=== PATIENT | female | born 1940 | race Caucasian/White ===

== ENCOUNTER 2017-07-22 23:04 | Inpatient (IN) | payer OTHER ==
[~2017-07-22] VITALS: Ht 152.4 cm; Wt 39.6 kg
--- NOTE | ~2017-07-22 | EKG ---
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: NEGRITA : 1940 Requested By: Bobby Coe Order Number: [id number] MD: Madi Castaneda Measurements Intervals [place] Rate: 46 P: 72 MI: 136 QRS: 47 QRSD: 92 T: 94 QT: 435 QTc: 381 Interpretive Statements Sinus bradycardia with sinus arrhythmia Abnormal R-wave progression, early transition Nonspecific ST and T wave abnormality No previous ECG available for comparison Electronically Signed On 07-24-2017 7:34:26 AUTOMATION CONTROL INTEGRATOR by Madi Castaneda [email or web address] <ELECTRONICALLY SIGNED> By: Madi Castaneda MD, [facility] 07/24/17 0734 2319 2319 Madi Castaneda MD, [facility] /EPI
--- NOTE | ~2017-07-22 | HC ---
[facility] [place] [address] CONSULTATION Name: KATIANA BARKLEY Room #: 431-P [facility] IN ..#: [id number] Admission: 07/23/17 Attend Phys: Bobby Coe DO Discharge: 07/24/17 Date of : 36 Report #: [id number] THIS REPORT FOR: //name// CC: Bobby Valverde DATE OF SERVICE: 07/23/2017 HISTORY OF PRESENT ILLNESS: I have been asked to evaluate this 76-year-old lady who presented to the hospital last evening with chief complaint of lower abdominal pain. The patient states that her symptoms became sharp and intermittent in the evening became 8/10 severity. She also complained of nausea with weakness, lightheadedness. She denied significant vomiting. She is also unable to void and have a bowel movement since yesterday. She denies any loose stools or hematochezia. PAST MEDICAL HISTORY: Consistent with hypertension, chronic back pain. PAST SURGICAL HISTORY: Back surgery in 2016 for significant osteoarthritis problems. MEDICATIONS: Her reported medication are Forteo 750 mcg subcutaneous yearly, Myrbetriq 25 mg p.o. daily, Cozaar 25 mg daily, metoprolol XL 25 mg daily, Ambien 5 mg , cholecalciferol 400 units daily, multivitamins, Mobic 7.5 mg daily and Pryor 5/325 mg 1 tablet t.i.d. for the severe back pain. ALLERGIES: AMLODIPINE, MORPHINE, SULFONAMIDE ANTIBIOTICS, TETRACYCLINE, KEFLEX. SHE DID NOT DEVELOP TRUNCAL RASH OR ITCHING, BUT HAD A SMALL ERYTHEMATOUS SPOT OF THE RIGHT CHEEK, WHICH DOES NOT SEEM TO BE A TRUE ALLERGIC REACTION. SOCIAL HISTORY: She is and lives with her , does not smoke cigarettes. Lives independently. Does drink alcohol in special occasions and this is mostly a wine. REVIEW OF SYSTEMS: A 10-point review of systems demonstrates the abdominal pain. She has ongoing back pain of a chronic nature. PHYSICAL EXAMINATION: GENERAL: Reveals a thin an alert, cooperative lady. She is afebrile. VITAL SIGNS: Within normal limits. HEENT: Pupils are equal, round, react to light. NECK: Supple, no bruits. LUNGS: Clear to bases bilaterally. CARDIOVASCULAR: Regular rate and rhythm. ABDOMEN: Some mild distention. She has a 3-4 cm mass in the left inguinal canal, which is cystic in structure and exquisitely tender. The right inguinal [facility] [address] [place] [address] CONSULTATION Name: KATIANA BARKLEY Room #: 431-P [facility] IN ..#: [id number] Admission: 07/23/17 Attend Phys: Bobby Coe DO Discharge: 07/24/17 Date of : 36 Report #: [id number] region is unremarkable. RECTAL: Not performed. NEUROLOGIC: She is oriented x 3 with bilateral motor symmetry. IMAGING DATA: Review of the CT scan is consistent with a left inguinal canal hernia and a small bowel in the hernia canal. LABORATORY DATA: Review of laboratories which are within normal limits with some elevation of white blood cell count. DIAGNOSTIC IMPRESSION: Left inguinal hernia, possible femoral with a small-bowel obstruction. I have recommended emergent exploration and open repair of left inguinal hernia and we will consider possible diagnostic laparoscopy to further evaluate the viability or possible ischemia of small bowel, which could be entrapped in the left inguinal canal. The patient is in agreement with this plan. Thank you for allowing us to participate in her care. We will proceed with scheduling surgery now. By: 1639 [id number] Jagdish Moreno MD, FACS /nt
--- NOTE | ~2017-07-22 | S ---
[facility] [place] [address] SURGICAL PATH RPT PROCEDURE Name: ROSEY BARKLEY Room #: 431-P DIS IN M.R.#: [id number] Admission: 07/23/17 Date of : 36 Discharge: 07/24/17 Report #: [id number] Path Case #: [id number] PATHOLOGY REPORT COLLECTION DATE: 07/23/2017 RECEIVED DATE: 07/24/2017 SUBMITTING PHYS: Dr. Jagdish Moreno OTHER PHYS: Dr. Bobby Valverde SPECIMEN(S) RECEIVED: A.Left femoral hernia contents and round ligament * * * * * * * * * * * * FINAL DIAGNOSIS: Soft tissue "left femoral hernia contents and round ligament, herniorrhaphy": - Fibroadipose tissue with congestion and edema consistent with incarcerated hernia. (SHA:mmbushra; 07/25/2017) PATHOLOGIST: Cesar Ram M.D. REPORT ELECTRONICALLY SIGNED BY: Cesar Ram M.D. DATE/TIME: 07/25/2017 14:13 * * * * * * * * * * * * GROSS PATHOLOGY: Received in formalin labeled "Rosey Barkley, left femoral hernia contents and round ligament" and consists of yellow orange to hemorrhagic fibroadipose tissue that measures 4.5 x 4.1 x 1.5 cm and aggregate. Sectioning reveals soft yellow and hemorrhagic cut surfaces. There is no dense tissue within aggregate resembling the round ligament. Loss Prevention Supervisor sections are submitted as A1. ([place]; 07/24/2017) CLINICAL HISTORY: Left incarcerated femoral hernia, result small bowel obstruction INITIAL CPT CODE(S): A; 42820 Professional services performed by [facility] at [facility] [address] [facility] , [place] [address] Technical services performed by [facility] at [address] [place] [address] [place] [address] SURGICAL PATH RPT PROCEDURE Name: ROSEY BARKLEY Room #: 431-P DIS IN M.R.#: [id number] Admission: 07/23/17 Date of : 36 Discharge: 07/24/17 Report #: [id number] Path Case #: [id number] [place] [address]. [facility] [address] [place] [address] PHONE: [phone] DIRECTOR: Nader Weller M.D. * * * END OF REPORT * * *
--- NOTE | ~2017-07-22 | O ---
[facility] [place] [address] OPERATIVE REPORT Name: KATIANA BARKLEY Room #: 431-P [facility] IN M.R.#: [id number] Admission: 07/23/17 Attend Phys: Bobby Coe DO Discharge: 07/24/17 Date of : 36 Report #: [id number] THIS REPORT FOR: //name// CC: Bobby Valverde DATE OF SERVICE: 07/23/2017 PREOPERATIVE DIAGNOSES: Incarcerated left inguinal hernia with small-bowel obstruction. POSTOPERATIVE DIAGNOSES: Incarcerated left femoral hernia with small-bowel obstruction and incarcerated preperitoneal fat of the left femoral canal. PROCEDURE: 1. Open repair of left incarcerated femoral hernia with placement of Surgimesh patch. 2. Diagnostic laparoscopy with evaluation of the pelvis. SURGEON: Jagdish Moreno MD. SAS ARCHITECT: Isabel Urbina APRN. SECOND INTRUSION ANALYST: Alcon Reina MS3. INDICATIONS: A 76-year-old who had sudden onset of lower abdominal pain the evening prior to admission. She sought attention in the Emergency Room. A CT scan was consistent with possible small-bowel obstruction and a loop of small bowel and a left inguinal hernia. The patient on examination had a mass 2-3 cm in the left inguinal canal, which was not reducible. The patient required urgent repair. OPERATIVE PROCEDURE: The patient had a thorough discussion of procedure, benefits and risks. This was discussed with she and her . They gave informed consent to proceed. She was brought to the operating room suite and had satisfactory induction of general endotracheal anesthesia. A urinary bladder catheter was placed under sterile conditions and direct control. The entire abdomen was prepped and draped with DuraPrep solution. During the draping procedure, an Ioban drape was placed. Initially, attention was turned to the left inguinal canal where the 8 cm inguinal crease incision was performed. Dissection was carried down to the external oblique fascia. External oblique fascia was opened. The incarcerated preperitoneal fat and/or bowel was posterior to the inguinal ligament. The inguinal ligament had to be split. The 3-4 cm mass was then thoroughly evaluated and this was proven to be consistent with preperitoneal fat. The preperitoneal fat and the round ligament were then transected. A Surgimesh patch was fashioned to approximate the floor [address] [address] OPERATIVE REPORT Name: RUBIAKATIANA Room #: 431-P [facility] IN [facility].#: [id number] Admission: 07/23/17 Attend Phys: Bobby Coe DO Discharge: 07/24/17 Date of : 36 Report #: [id number] of the inguinal canal. This was sutured in place with 0 Prolene, 1 suture medial to the lateral border of the rectus sheath and into the transversalis fascia. The most inferior portion of the patch was sutured to the symphysis pubis, Melvin's ligament and laterally to the Melvin's ligament and then transitioning also to the inguinal ligament distally as well as proximally. The patch was sutured in place. The femoral canal had additional [id number] 0 Prolene suture to approximate the lateral aspect of the patch to the Melvin's ligament additionally. The patch was in satisfactory position. The external oblique fascia was then reapproximated with a running 2-0 PDS suture. La's fascia was approximated with running 3-0 Vicryl. Skin margins were approximated with subcuticular 4-0 Monocryl. Attention was then turned to the umbilicus where a small infraumbilical incision was performed and opening the peritoneum was performed. The 12 mm scope was then placed under direct vision and the balloon was inflated. Inspection of the abdomen especially lower abdomen looking at the bowel from any site of possible hernia defect on the left or bowel obstruction was performed. A 5 mm port was placed 10 cm lateral to the umbilicus on the right. This was utilized for manipulation of the bowel. The patient was placed in severe Trendelenburg position. Inspection of the pelvis demonstrated some clear peritoneal fluid. No evidence of a defect in the left inguinal canal area was identified. This was consistent with closure from the previous open repair. On the right, there was a small indentation consistent with an early 1-2 cm inguinal hernia on the right side. Photographs were taken and made part of the medical record. No other intra-abdominal pathology was noted. The 12 mm trocar was removed. The fascial defect was then approximated with running 0 PDS suture under direct control to complete the repair. The skin margins were then approximated with subcuticular 4-0 Monocryl. The estimated blood loss for the entire procedure was less than 25 mL. Dermabond was applied to all of the incisions. The patient tolerated the procedure well and she returned to recovery room in stable and satisfactory condition. By: 1654 [id number] Jagdish Moreno MD, FACS /nt
[2017-07-22 23:05] VITALS: BP 169/57
[2017-07-22] MEDS ORDERED: FORTEO750 MCG/3 IV (23:35)
[2017-07-22] MEDS ORDERED: COZAAR 25 MG TA25 M1 PO (23:36)
[2017-07-22] MEDS ORDERED: MYRBETRIQ25 MG PO (23:36)
[2017-07-22] MEDS ORDERED: FORTEO750 MCG/3 SUBQ (23:36)
[2017-07-22] MEDS ORDERED: AMBIEN 5 MG TABL5 M1 PO (23:37)
[2017-07-22] MEDS ORDERED: TOPROL XL25 MG PO (23:37)
[2017-07-22] MEDS ORDERED: VITAMIN D3400 UNIT PO (23:37)
[2017-07-22] MEDS ORDERED: MOBIC7.5 MG PO (23:38)
[2017-07-22] MEDS ORDERED: MULTIPLE VITAM1 EAC2 PO (23:38)
[2017-07-22] MEDS ORDERED: HYDROCODONE-AP1 EAC6 PO (23:39)
[2017-07-22 23:50] LABS: HEMOGLOBIN 13.1 gm/dL (12.0-15.0); MCH 31.1 pg (26.0-34.0); MCHC 33.6 g/dL (28.0-37.0); MCV 92.5 fL (80.0-100.0); PLATELET COUNT 286 thou/uL (150-400); RBC 4.21 mil/uL (4.20-5.00); RDW 12.4 % (10.5-14.5); WBC 27.8 thou/uL (4.0-11.0)
[2017-07-22 23:51] LABS: MANUAL DIFF YES
[2017-07-22 23:52] LABS: POC CA IONIZED 4.6 mg/dL (4.5-5.3); POC CREATININE 0.6 mg/dL (0.6-1.3); POC HEMOGLOBIN 12.6 g/dL (12.0-15.0); POC POTASSIUM 2.9 mmol/L (3.5-5.1)
[2017-07-22 23:56] LABS: CALCIUM 10.4 mg/dL (8.5-10.1); CREATININE 0.6 mg/dL (0.6-1.0)
[2017-07-23 00:02] LABS: ALBUMIN 3.5 g/dL (3.4-5.0); TOTAL BILIRUBIN 0.6 mg/dL (<0.1-1.0)
[2017-07-23 00:09] LABS: ABSOLUTE NEUTROPHILS 26.1 thou/uL (1.4-8.2); TOTAL CELL COUNT 100
[2017-07-23 00:51] LABS: URINE BILIRUBIN NEGATIVE (Negative); URINE BLOOD NEGATIVE (Negative); URINE COLOR YELLOW; URINE GLUCOSE-RANDOM* NEGATIVE (Negative); URINE KETONES 1+ (Negative); URINE LEUKOCYTES-REFLEX NEGATIVE (Negative); URINE PROTEIN (DIPSTICK) NEGATIVE (Negative); URINE UROBILINOGEN 0.2 E.U./dl (0.2-1.0)
[2017-07-23 02:44] VITALS: BP 136/51
[2017-07-23 03:51] VITALS: BP 143/67
[2017-07-23 06:08] LABS: HEMATOCRIT 38.5 % (37.0-47.0); MCH 31.4 pg (26.0-34.0); MCHC 33.9 g/dL (28.0-37.0); MCV 92.6 fL (80.0-100.0); RBC 4.15 mil/uL (4.20-5.00); RDW 12.3 % (10.5-14.5)
[2017-07-23 06:14] LABS: CALCIUM 9.6 mg/dL (8.5-10.1); CREATININE 0.5 mg/dL (0.6-1.0); POTASSIUM 3.7 mmol/L (3.5-5.1)
[2017-07-23 08:00] VITALS: BP 155/55
[2017-07-23 17:45] VITALS: BP 137/48
[2017-07-23 20:55] VITALS: BP 138/66
[2017-07-24 04:25] VITALS: BP 119/50
[2017-07-24 06:20] LABS: HEMATOCRIT 32.9 % (37.0-47.0); MCH 31.7 pg (26.0-34.0); MCHC 33.6 g/dL (28.0-37.0); MCV 94.3 fL (80.0-100.0); PLATELET COUNT 176 thou/uL (150-400); RBC 3.49 mil/uL (4.20-5.00); RDW 12.5 % (10.5-14.5); WBC 15.9 thou/uL (4.0-11.0)
[2017-07-24 06:25] LABS: MANUAL DIFF YES
[2017-07-24 06:34] LABS: CALCIUM 8.3 mg/dL (8.5-10.1); CREATININE 0.4 mg/dL (0.6-1.0); POTASSIUM 3.6 mmol/L (3.5-5.1)
[2017-07-24 07:49] LABS: ABSOLUTE NEUTROPHILS 14.3 thou/uL (1.4-8.2); TOTAL CELL COUNT 100
[2017-07-24 07:50] LABS: ANISOCYTOSIS SLIGHT
[2017-07-24 08:00] VITALS: BP 111/59
[2017-07-24 11:48] VITALS: BP 111/59
[2017-07-24 11:53] VITALS: BP 119/51
[2017-07-24 11:59] VITALS: BP 111/59
== END 2017-07-24 15:10 | disposition home or self-care (01) | DRG 351 ==
LOC: ER 23:04 → 4E 07-23 01:49 → EROBS 07-23 01:49 → 4E 07-23 03:01 → ENTRNSPT 07-24 14:20 → EDTRNSPTSTS 07-24 14:26 → 4E 07-24 15:10
PROVIDERS: Emergency Medicine; Nurse Practitioner Family; Surgery
PROC: 0YU60JZ Supplement Left Inguinal Region with Synthetic Substitute, Open Approach (ICD-10-PCS; principal; 2017-07-23)
DX: K40.30 Unilateral inguinal hernia, with obstruction, without gangrene, not specified as recurrent (principal); E87.2 Acidosis; E87.6 Hypokalemia; I10 Essential (primary) hypertension; G89.29 Other chronic pain; M54.9 Dorsalgia, unspecified; K59.00 Constipation, unspecified; D72.829 Elevated white blood cell count, unspecified; M19.90 Unspecified osteoarthritis, unspecified site; Z88.1 Allergy status to other antibiotic agents; Z88.8 Allergy status to other drugs, medicaments and biological substances; Z88.5 Allergy status to narcotic agent; Z88.2 Allergy status to sulfonamides
CPT/HCPCS: 10183; 50010; 50101; 50249; 50386; 50403; 50555; 50788; 53314; 54118; 56524; 56525; 56526; 62110; 62900; 70005